=== PATIENT | female | born 1975 | race Caucasian/White ===

== ENCOUNTER 2021-04-07 09:38 | Emergency (ER) | payer OTHER ==
[~2021-04-07] VITALS: Ht 157.5 cm; Wt 83.9 kg
[~2021-04-07 09:38] MED LIST: ADDERALL 10 MG10 MG PO; XANAX 0.5 MG0.5 MG PO; ZPAK PO
[2021-04-07] MEDS ORDERED: CRESTOR10 MG PO (10:36)
[2021-04-07] MEDS ORDERED: CARVEDILOL12.5 MG PO (10:37)
[2021-04-07] MEDS ORDERED: OMEPRAZOLE40 MG PO (10:37)
[2021-04-07] MEDS ORDERED: VASCEPA0.5 GM PO (10:37)
[2021-04-07] MEDS ORDERED: ASA81BEC PO (10:38)
[2021-04-07 10:59] LABS: URINE BILIRUBIN NEGATIVE (Negative); URINE BLOOD NEGATIVE (Negative); URINE CLARITY CLEAR; URINE COLOR YELLOW; URINE GLUCOSE-RANDOM NEGATIVE (Negative); URINE KETONES NEGATIVE (Negative); URINE LEUKOCYTES-REFLEX NEGATIVE (Negative); URINE NITRITE-REFLEX NEGATIVE (Negative); URINE PROTEIN NEGATIVE (Negative); URINE SPECIFIC GRAVITY >= 1.030 (1.005-1.030); URINE UROBILINOGEN 0.2 E.U./dl (0.2-1.0)
[2021-04-07 11:49] LABS: ABSOLUTE BASOPHILS 0.1 thou/uL (0.0-0.2); ABSOLUTE EOSINOPHILS 0.2 thou/uL (0.0-0.7); ABSOLUTE LYMPHOCYTES 2.4 thou/uL (0.8-5.3); ABSOLUTE MONOCYTES 0.5 thou/uL (0.0-1.2); ABSOLUTE NEUTROPHILS 4.6 thou/uL (1.6-8.1); BASOPHILS 0.7 %; HEMATOCRIT 43.1 % (37.0-47.0); HEMOGLOBIN 14.8 gm/dL (12.0-15.0); MCH 29.7 pg (26.0-34.0); MCHC 34.4 g/dL (28.0-37.0); MCV 86.2 fL (80.0-100.0); MONOCYTES 7.1 %; MPV 9.2 fl. (7.2-11.1); NUCLEATED RBCS 0 /100WBC; PLATELET COUNT* 158 thou/uL (150-400); POLYS 59.2 %; RDW-CV 13.9 % (10.5-14.5); WBC 7.7 thou/uL (4.0-11.0)
[2021-04-07 11:59] LABS: CALCIUM 8.6 mg/dL (8.5-10.1); CREATININE 0.7 mg/dL (0.6-1.3); POTASSIUM 3.6 mmol/L (3.5-5.1)
[2021-04-07 12:08] LABS: ALBUMIN 3.5 g/dL (3.4-5.0); TOTAL BILIRUBIN 0.4 mg/dL (<0.1-1.0); TOTAL PROTEIN 6.5 g/dL (6.4-8.2)
[2021-04-07] MEDS ORDERED: CIPRO500 M1 PO (14:24)
[2021-04-07] MEDS ORDERED: ZOFRAN ODT4 MG PO (14:24)
[2021-04-07] MEDS ORDERED: METRONIDAZOLE500 M4 PO (14:24)
[2021-04-07] MEDS ORDERED: HYDROCODON-ACE1 EAC7 PO (14:25)
[2021-04-07 14:35] VITALS: BP 110/45
--- NOTE | 2021-04-08 14:36 | EKG ---
[place] [address] ELECTROCARDIOGRAM REPORT Name: MATTHEW PEREZ Room: [facility]#: [id number] Admission: 04/07/21 Attend Phys: Discharge: 04/07/21 Date of : 73 Date of Service: 04/07/21 1138 Report #: [id number] THIS REPORT FOR: //name// [facility] ED Test Date: 2021-04-07 Test Time: 11:38:33 Pat Name: MATTHEW PEREZ Department: Room: Gender: Investigator: : 1975 Requested By: Era Bales Order Number: [id number] MD: Pa Galvan Measurements Intervals [place] Rate: 66 P: 25 NE: 166 QRS: -21 QRSD: 95 T: 27 QT: 421 QTc: 442 Interpretive Statements Sinus rhythm Borderline left axis deviation Low voltage, extremity leads Abnormal R-wave progression, late transition No previous ECG available for comparison Electronically Signed On 04-08-2021 14:35:58 PSYCHOLOGIST PERSONNEL by Pa Galvan [email or web address] <ELECTRONICALLY SIGNED> By: Pa Galvan MD, [facility] 04/08/21 1435 1138 1138 Pa Galvan MD, [facility] /EPI
== END 2021-04-07 14:35 | disposition home or self-care (01) ==
LOC: M.ERS 09:38
PROVIDERS: Nurse Practitioner Family
DX: Q34.1 Congenital cyst of mediastinum (principal); K52.9 Noninfective gastroenteritis and colitis, unspecified; F41.9 Anxiety disorder, unspecified; K21.9 Gastro-esophageal reflux disease without esophagitis; F17.210 Nicotine dependence, cigarettes, uncomplicated; Z88.5 Allergy status to narcotic agent; Z90.710 Acquired absence of both cervix and uterus; Z90.49 Acquired absence of other specified parts of digestive tract; Z79.899 Other long term (current) drug therapy; Z88.8 Allergy status to other drugs, medicaments and biological substances